=== PATIENT | female | born 1965 | race Hispanic/Latino ===

== ENCOUNTER 2024-06-16 19:31 | Emergency (ER) | payer BC, OTHER ==
[~2024-06-16] VITALS: Ht 162.6 cm; Wt 124.3 kg
--- NOTE | 2024-06-16 19:34 | NUR ---
UA CUP PROVIDED
--- NOTE | 2024-06-16 20:37 | ERN ---
ED Note History of Present Illness Stated Complaint: ABD PAIN Chief Complaint: Abdominal Pain Time Seen by MD: 19:43 Dictation: This is a 58-year-old female who presented with abdominal discomfort bloating going on for 2 months. She apparently had an extensive evaluation and ultraso und a pack was reported as normal she also received antibiotics and she felt somewhat better however she has been experiencing this lower abdominal pain and tenderness for many days. She denied any nausea vomitings diarrhea hematemesis or melena but it is mostly the pain that was bothering her Temperature 99.6 pulse 84 respirations 16 blood pressure 156/76 with a pulse oximetry of 98% on room air Her chronic medical problems gastroesophageal reflux, extreme obesity, history of hysterectomy and cholecystectomy in the past. Allergies: Coded Allergies: No Known Allergies (Unverified Allergy, Unknown, 06/16/24) Home Meds Active Scripts Amoxicillin/Potassium Clav (Amox Tr-K Clv 875-125 mg Tab) 875 Mg-125 Mg Tablet, 1 EACH PO TID for 10 Days, #30 TAB 0 Refills Prov:ARLINE PETERSEN MD 06/17/24 Past Medical History Past Medical History: No Pertinent History Surgical History: Hysterectomy, Cholecystectomy Family History: Negative Social History: Negative RN Note Reviewed/Agreed w/PFSH: Yes Review of System Dictation Constitutional: Negative for fever,chills, and weight loss Eyes: Negative for injury, pain,redness, and discharge ENT: Negative for injury,pain or swelling Cardiovascular: Negative for chest pain, palpitations, and edema Respiratory: Negative for shortness of breath, cough, and wheezing, Abdomen/GI: Positive for abdominal pain, nausea, denies vomiting, diarrhea, and constipation Back: Negative for injury and pain : Negative for injury, bleeding and discharge MS/Extremity: Negative for injury and deformity Skin: Negative for rash, and discoloration Neuro: Negative for headache, weakness, numbness, tingling, and seizure Psych: Negative for suicide ideation, homicidal ideation, and hallucinations Initial Vital Sign VS Vital Signs Date Time Temp Pulse Resp B/P (MAP) Pulse Ox O2 Delivery O2 Flow Rate FiO2 06/16/24 19:32 99.7 84 16 156/76 98 Room Air 06/16/24 20:43 0 21 Physical Exam Dictation General: awake, alert, NAD morbidly obese female Head/Face: Normocephalic, atraumatic Eyes: PERRL, EOMI, vision at baseline ENT: oral cavity clear, TMs clear, no signs of infection Neck: Trachea midline, supple, no nuchal rigidity Cardiovascular: RRR, normal S1/S2, No MRGs, no JVD Respiratory: CTAB, no respiratory distress, No rales or wheezes Abdomen: Soft, mildly-tender, very obese, normal bowel sounds, no guarding or rebound. Skin: Warm, dry, normal turgor, no rash MS/Extremity: Pulses equal, no cyanosis, neurovascular intact, FROM Neuro: COAx4, GCS 15, strength 5/5, CN 2-12 intact, normal cerebellar exam, normal gait, Psych: Normal behavior, mood, and affect normal Extremities-trace edema without any palpable cords, Homans sign is negative Results (Laboratory/Radiology) Laboratory/Radiology Laboratory Tests Test 06/16/24 19:45 06/16/24 20:27 Urine Color LIGHT-YELLOW (YELLOW) Urine Appearance CLOUDY (CLEAR) H Urine pH 5.5 (5.0-8.0) Urine Specific [place] 1.008 (1.001-1.031) Urine Protein NEGATIVE mg/dL (NEGATIVE) Urine Glucose (UA) NEGATIVE mg/dL (NEGATIVE) Urine Ketones NEGATIVE mg/dL (NEGATIVE) Urine Occult Blood MODERATE (NEGATIVE) H Urine Nitrate NEGATIVE (NEGATIVE) Urine Bilirubin NEGATIVE mg/dL (NEGATIVE) Urine Urobilinogen 0.2 mg/dL (0.2-1.0) Urine Leukocyte Esterase 75 Amber/uL (NEGATIVE) H Urine RBC 6-10 /HPF (0-1) H Urine WBC 2-5 /HPF (0-1) H Urine Squamous Epithelial Cells MOD /HPF (0-2) Urine Bacteria FEW /HPF (None Seen) White Blood Count 10.9 K/uL (4.8-10.8) H Red Blood Count 4.60 MIL/uL (4.00-5.50) Hemoglobin 12.8 g/dL (12.0-16.0) Hematocrit 39.7 % (36-48) Mean Corpuscular Volume 86.3 fL (79-99) Mean Corpuscular Hemoglobin 27.8 pg (27.0-33.0) Mean Corpuscular Hemoglobin Concent 32.2 g/dL (32.0-36.0) Red Cell Distribution Width 13.5 % (11.0-15.5) Platelet Count 206 K/uL (130-400) Mean Platelet Volume 11.5 fL (7.5-10.5) H Immature Granulocyte % (Auto) 0.3 % (0-1) Neutrophils (%) (Auto) 68.4 % (40.0-77.0) Lymphocytes (%) (Auto) 19.7 % (21.0-51.0) L Monocytes (%) (Auto) 10.6 % (3.0-13.0) Eosinophils (%) (Auto) 0.8 % (0.0-8.0) Basophils (%) (Auto) 0.2 % (0.0-5.0) Neutrophils # (Auto) 7.4 K/uL (1.8-7.7) Lymphocytes # (Auto) 2.1 K/uL (1.0-4.8) Monocytes # (Auto) 1.2 K/uL (0.1-1.0) H Eosinophils # (Auto) 0.09 K/uL (0.00-0.70) Basophils # (Auto) 0.02 K/uL (0.00-0.20) Absolute Immature Granulocyte (auto 0.03 K/uL (0-1) Nucleated Red Blood Cells 0.0 % (0.0-0.19) Sodium Level 138 mmol/L (136-145) Potassium Level 3.6 mmol/L (3.5-5.1) Chloride Level 101 mmol/L (101-111) Carbon Dioxide Level 31 mmol/L (21-32) Blood Urea Nitrogen 8 mg/dL (7-18) Creatinine 0.7 mg/dL (0.5-1.0) Glomerular Filtration Rate Calc 99 mL/min (>90) Random Glucose 92 mg/dL (70-105) Total Calcium 9.0 mg/dL (8.5-10.1) Total Bilirubin 0.9 mg/dL (0.2-1.0) Direct Bilirubin 0.2 mg/dL (0.0-0.3) Aspartate Amino Transf (AST/SGOT) 22 U/L (10-37) Alanine Aminotransferase (ALT/SGPT) 24 U/L (12-78) Alkaline Phosphatase 118 U/L (50-136) Troponin I High Sensitivity 5 ng/L (4-50) Total Protein 7.8 g/dL (6.0-8.3) Albumin 3.1 g/dL (3.5-5.0) L Lipase 19 U/L (16-77) Labs Reviewed?: Yes CT Scan Comment: PATIENT: RADHA SANTANA MR#: [id number] : 1965 SEX: F AGE: 58 LOCATION: [facility] ORDER 19 STATUS: REG ER REPORT#: [id number] SERVICE 18 REASON: abdominal pain and tenderness ORDERING PHYSICIAN: ARLINE PETERSEN MD PROCEDURE: ABD PEL WO - CT ABDOMEN/PELVIS W/O CONTRAST CT ABDOMEN/PELVIS W/O CONTRAST HISTORY: Abdominal pain COMPARISON: None TECHNIQUE: Multiple sequential axial images of the abdomen and pelvis were obtained from the dome of the diaphragm through symphysis pubis. Patient was not given contrast through intravenous route. Oral contrast was not given. FINDINGS: No pleural effusion is seen bilaterally. There is no evidence of parenchymal disease or pulmonary nodule of the visualized lower lungs. Degenerative changes of the thoracolumbar spine are present. The heart is not enlarged. Liver measures 14 cm. Post cholecystectomy changes are seen. The liver, spleen, adrenal glands and pancreas are unremarkable. There is no evidence of hydronephrosis bilaterally. Tiny 2 mm bilateral renal pelvic stones are seen. Fecal material is seen in the colon. There are normal size retroperitoneal and mesenteric lymph nodes. No ascites is seen. Atherosclerotic changes are present. There is diverticulosis. Sigmoid colon wall thickening is seen suggestive acute sigmoid diverticulitis. No focal abscess is seen. There may be walled off perforation with heterogeneous air collection adjacent to the sigmoid colon. No evidence of free intraperitoneal air is seen at this time. No CT evidence of acute appendicitis is seen. Pelvic sidewalls are symmetric bilaterally. Bladder is well distended without wall thickening. IMPRESSION: 1. There is diverticulosis. Sigmoid colon wall thickening is seen suggestive acute sigmoid diverticulitis. No focal abscess is seen. There may be walled off perforation with heterogeneous air collection adjacent to the sigmoid colon. No evidence of free intraperitoneal air is seen at this time. CT was performed with one or more following dose reduction techniques: automated exposure control, adjustment of the mA and kv according to patient's size, or use of a iterative reconstruction technique. DICTATED BY: WEI BAL MD DATE: 06/16/242210 ELECTRONICALLY SIGNED BY: WEI BAL MD DATE: 06/16/242218 ED Course ED Course Orders Procedure Category Date Status Time Cbc With Differential LAB 06/16/24 Complete 19:33 Basic Metabolic Panel LAB 06/16/24 Complete 19:33 Troponin I High LAB 06/16/24 Complete Sensitivity 19:33 Urinalysis Profile LAB 06/16/24 Complete 19:33 Lipase LAB 06/16/24 Complete 19:33 Hepatic Function Panel LAB 06/16/24 Complete 19:33 12 Lead Ekg Tracing- EKG 06/16/24 Resulted Technical 19:33 Culture Urine SHAHZAD 06/16/24 In Process 20:49 Ct Abdomen/Pelvis W/O CT 06/16/24 Resulted Contrast 21:19 Zosyn 3.375gm+Ns 50ml PHA 06/16/24 Complete (Zosyn 3.375gm+Ns 23:30 Current Medications Medications (Trade) Dose Ordered Sig/Michelle Route PRN Reason Start Time Stop Time Status Last Admin Dose Admin Piperacillin Sod/ Tazobactam Sod (Zosyn 3.375gm+NS 50ml) 3.375 gm ONCE ONCE IV 06/16/24 23:30 06/16/24 23:31 DC 06/16/24 23:44 Vital Signs Date Time Temp Pulse Resp B/P (MAP) Pulse Ox O2 Delivery O2 Flow Rate FiO2 06/17/24 00:43 71 16 116/58 98 Room Air* 0 21 06/16/24 23:38 77 16 138/69 99 Room Air* 0 21 06/16/24 20:43 99.1 77 18 133/59 97 Room Air* 0 21 06/16/24 19:32 99.7 84 16 156/76 98 Room Air We will perform diagnostic labs, and administer medications according to the patient's complaint. Once the results are available, will review and personally interpreted the labs to rule out any acute life-threatening emergency the trach require immediate intervention and treatment. I will then re-evaluate the patient after treatment and diagnostic exams have return to determine whether the patient requires any further testing, can safely be discharged home or need further admission to hospital for additional treatment and evaluation. Labs reviewed CBC showed a white count of 10.9 CMP with a normal limits urinalysis showed positive leuko esterase but no WBCs. Given the abdominal tenderness especially in the lower abdomen and left lower quadrant I requested a CT scan of the abdomen and pelvis which is pending at this time 11:15 p.m.-CT scan of the abdomen and pelvis results reviewed patient has sigmoi d diverticulitis with a no obvious abscess but the possibility of a walled-off small area of perforation adjacent to the colon can not be ruled out per radiologist. I had a long discussion with the patient and her sister about the CT scan findings and concern for diverticulitis and need for antibiotics for the infection. I recommended admission to the hospital but patient was adamantly refusing to stay is stating some personal obligations . She is willing to get dose of IV antibiotics but would like to go on p.o. antibiotics and follow up with her primary care physician. I educated her that it could worsen and needs surgical intervention if not adequately treated and she verbalized full understanding and still insists on going home with p.o. antibiotics. Patient has low-grade fever at 99.7 with very mild leukocytosis of 10.9. She is agreeable to return to the ER should she have any worsening symptoms high fevers or worsening abdominal pain. Medical Decision Making MDM MDM: Differential diagnosis: Constipation, diverticulitis, diverticulosis, cystitis Rationale: Tests considered and ordered secondary to shared decision making include: Previous outside records reviewed: Old ER visits. Risk of complication and/or morbidity or mortality of patient management: None Medications-Per medication reconciliation Need for hospitalization: Patient does not meet criteria for hospitalization. Need for emergency major/minor surgery: No There are no social concerns with this patient. Prescription drug management Prescriptions will include symptomatic care Patient's prior external medical records from other ER visits were reviewed by me as indicated. Prior testing and results from previous visits were reviewed. Prior tests were taken into account with medical decision making and resource utilization, independent historian/historians were used to obtain complete medical history. I independently interpreted the test that were performed, results were reviewed by me and considered findings on radiology if ordered. Medical management and examination interpretation discussions were had by me with other qualified healthcare professionals as indicated for the patient's care. Problem List Problem List: (1) Diverticulitis of sigmoid colon DX & DISP Disposition: Discharge Departure Impression: Primary Impression: Diverticulitis of sigmoid colon Condition: Stable Scripts Amoxicillin/Potassium Clav (Amox Tr-K Clv 875-125 mg Tab) 875 Mg-125 Mg Tablet 1 EACH PO TID for 10 Days, #30 TAB 0 Refills Prov: ARLINE PETERSEN MD 06/17/24 Additional Instructions: Patient and the caregiver have been informed of all the diagnostic tests and the imaging conducted during the today's visit to the emergency room and has verbalized understanding of the results I have personally reviewed and interpreted all diagnostic exams performed here in the ER today as well as the vital signs documented by the nursing staff. The patient is now being discharged to home and should follow up with the primary care physician or the specialist as directed by the ER staff. Follow-up with primary care provider in 1 to 2 days. Take medications as directed here in the emergency room. Okay to continue home medications unless otherwise discussed during your visit in the emergency room today. Return to yo ur nearest emergency room if symptoms worsen or if there is no improvement. Call 911 if you need immediate assistance. Take Tylenol or Motrin [id number] as needed and if no contraindications are present. Increase oral hydration. A wound culture or urine culture was ordered here in the emergency room department please follow-up with primary care provider and advise them to get repeat ports from our facility. If you had any Ty wrap/splints that were applied here, please do not remove them until you see your primary care or specialty. Referrals: NONE (PCP) ARLINE PETERSEN MD Jun 16, 2024 20:37
[2024-06-16 20:42] LABS: BASOPHILS # (AUTO) 0.02 K/uL (0.00-0.20); BASOPHILS % (AUTO) 0.2 % (0.0-5.0); EOSINOPHILS # (AUTO) 0.09 K/uL (0.00-0.70); EOSINOPHILS % (AUTO) 0.8 % (0.0-8.0); HEMATOCRIT 39.7 % (36-48); IMMATURE GRANULOCYTE ABSOLUTE 0.03 K/uL (0-1); LYMPHOCYTES # (AUTO) 2.1 K/uL (1.0-4.8); LYMPHOCYTES % (AUTO) 19.7 % (21.0-51.0); MEAN CORPUSCULAR HEMOGLOBIN 27.8 pg (27.0-33.0); MEAN CORPUSCULAR HGB CONC 32.2 g/dL (32.0-36.0); MEAN CORPUSCULAR VOLUME 86.3 fL (79-99); MONOCYTES # (AUTO) 1.2 K/uL (0.1-1.0); MONOCYTES % (AUTO) 10.6 % (3.0-13.0); NEUTROPHILS # (AUTO) 7.4 K/uL (1.8-7.7); NEUTROPHILS % (AUTO) 68.4 % (40.0-77.0); PLATELET COUNT (AUTO) 206 K/uL (130-400); RED CELL DISTRIBUTION WIDTH 13.5 % (11.0-15.5); WHITE BLOOD COUNT (AUTO) 10.9 K/uL (4.8-10.8)
[2024-06-16 20:43] VITALS: TEMP 99.2
[2024-06-16 20:48] LABS: APPEARANCE,URINE CLOUDY (CLEAR); BILIRUBIN,URINE NEGATIVE (NEGATIVE); COLOR,URINE LIGHT-YELLOW (YELLOW); GLUCOSE, URINE (UA) NEGATIVE (NEGATIVE); KETONES,URINE NEGATIVE (NEGATIVE); LEUKOCYTE ESTERASE ,URINE 75 Leu/uL (NEGATIVE); NITRATE,URINE NEGATIVE (NEGATIVE); OCCULT BLOOD,URINE MODERATE (NEGATIVE); PH,URINE 5.5 (5.0-8.0); PROTEIN,URINE NEGATIVE (NEGATIVE); UROBILINOGEN,URINE 0.2 mg/dL (0.2-1.0)
[2024-06-16 20:49] LABS: ADD UA MICROSCOPIC YES
[2024-06-16 20:51] LABS: BACTERIA,URINE FEW /HPF (None Seen); MUCUS,URINE RARE LPF (None Seen); SQUAMOUS EPITHELIAL CELL,UR MOD /HPF (0-2)
[2024-06-16 20:58] LABS: CREATININE 0.7 mg/dL (0.5-1.0); POTASSIUM 3.6 mmol/L (3.5-5.1)
[2024-06-16 21:02] LABS: ALBUMIN 3.1 g/dL (3.5-5.0); BILIRUBIN,DIRECT 0.2 mg/dL (0.0-0.3); BILIRUBIN,TOTAL 0.9 mg/dL (0.2-1.0); TOTAL PROTEIN, SERUM 7.8 g/dL (6.0-8.3)
--- NOTE | 2024-06-16 21:05 | EKG ---
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
--- NOTE | 2024-06-16 22:19 | HMCIMG ---
CT ABDOMEN/PELVIS W/O CONTRAST HISTORY: Abdominal pain COMPARISON: None TECHNIQUE: Multiple sequential axial images of the abdomen and pelvis were obtained from the dome of the diaphragm through symphysis pubis. Patient was not given contrast through intravenous route. Oral contrast was not given. FINDINGS: No pleural effusion is seen bilaterally. There is no evidence of parenchymal disease or pulmonary nodule of the visualized lower lungs. Degenerative changes of the thoracolumbar spine are present. The heart is not enlarged. Liver measures 14 cm. Post cholecystectomy changes are seen. The liver, spleen, adrenal glands and pancreas are unremarkable. There is no evidence of hydronephrosis bilaterally. Tiny 2 mm bilateral renal pelvic stones are seen. Fecal material is seen in the colon. There are normal size retroperitoneal and mesenteric lymph nodes. No ascites is seen. Atherosclerotic changes are present. There is diverticulosis. Sigmoid colon wall thickening is seen suggestive acute sigmoid diverticulitis. No focal abscess is seen. There may be walled off perforation with heterogeneous air collection adjacent to the sigmoid colon. No evidence of free intraperitoneal air is seen at this time. No CT evidence of acute appendicitis is seen. Pelvic sidewalls are symmetric bilaterally. Bladder is well distended without wall thickening. IMPRESSION: 1. There is diverticulosis. Sigmoid colon wall thickening is seen suggestive acute sigmoid diverticulitis. No focal abscess is seen. There may be walled off perforation with heterogeneous air collection adjacent to the sigmoid colon. No evidence of free intraperitoneal air is seen at this time. CT was performed with one or more following dose reduction techniques: automated exposure control, adjustment of the mA and kv according to patient's size, or use of a iterative reconstruction technique.
[2024-06-16] MEDS: ZOSYN 3.375GM +NS 50ML IV ONE (23:44)
[2024-06-17] MEDS ORDERED: AMOX1TAB16 PO (00:05)
[2024-06-17 00:43] VITALS: BP 116/58; PULSE 71; RESP 16; O2SAT 98
== END 2024-06-17 00:56 | disposition home or self-care (01) ==
LOC: EDH 19:31
DX: K57.32 Diverticulitis of large intestine without perforation or abscess without bleeding (principal); Z90.49 Acquired absence of other specified parts of digestive tract; Z90.710 Acquired absence of both cervix and uterus
CPT/HCPCS: 99285; 74176; 96365; 80076; 84484; 80048; 83690; 85025; 87086; 81001; 36415; 93005; J2543